=== PATIENT | male | born 1940 | race Caucasian/White ===

== ENCOUNTER 2018-08-27 07:54 | Day surgery (SDC) | payer MEDICARE, OTHER ==
[2018-08-23 12:56] VITALS: BMI 30.8
[~2018-08-27 07:54] MED LIST: LACTATED RINGERS 1,000 ML IV SCH; LIDOCAINE 1% 20 ML VIAL (10MG/ML) FOR IV START INTRADERMA PRN
[2018-08-27 08:13] VITALS: TEMP 97.2
[2018-08-27] MEDS ORDERED: LIDOCAINE 1% INJ 10MG/ML (20 ML MDV) ONE (09:13)
[2018-08-27] MEDS ORDERED: PROPOFOL 10 MG/ML 20 ML VIAL IV ONE (09:13)
[2018-08-27 09:48] VITALS: RESP 16
--- NOTE | 2018-08-27 09:48 | P.PCN ---
Date of Procedure: 08/27/18 Procedure(s) Performed: Procedure: Total colonoscopy. Preoperative diagnosis: History of polyps. Postoperative diagnosis: Mild sigmoid diverticulosis. Preparation: HalfLytely prep. Sedation: Was provided by anesthesia. Brief clinical history: The patient is a 78-year-old male with history of polyps. His last exam was in November 2013. This evaluation as part of his surveillance. He has no abdominal symptoms, bleeding or anemia. Procedure: With the patient on his left lateral decubitus position and after informed consent and adequate sedation, the perianal area was inspected and it did not show any fissures or fistulas. There were no masses felt on digital rectal examination. The Olympus CFH 190L video colonoscope was then inserted in the rectum in the usual fashion and advanced to the cecum. The mucosa appeared healthy. There was a small early diverticular orifice or 2 in the distal sigmoid but I saw no evidence of acute diverticulitis or strictures. No polyps or tumors were seen. I retroflexed the endoscope in the rectum before the endoscope was withdrawn. Low-grade internal hemorrhoids were noted but there was no bleeding. Disposition: The patient tolerated the procedure well. Plan: The patient was reassured. Discussed dietary measures. I did not recommend further screening at his age.
[2018-08-27 10:02] VITALS: BP 145/80; PULSE 48
== END 2018-08-27 10:44 | disposition home or self-care (01) ==
LOC: ORWHC2ENDO 07:54
DX: Z12.11 Encounter for screening for malignant neoplasm of colon (principal); K57.30 Diverticulosis of large intestine without perforation or abscess without bleeding; K64.8 Other hemorrhoids; Z86.010 Personal history of colon polyps; I25.10 Atherosclerotic heart disease of native coronary artery without angina pectoris; K21.9 Gastro-esophageal reflux disease without esophagitis; I10 Essential (primary) hypertension; M10.9 Gout, unspecified; E78.5 Hyperlipidemia, unspecified; I25.2 Old myocardial infarction; Z95.5 Presence of coronary angioplasty implant and graft; Z79.82 Long term (current) use of aspirin; Z79.899 Other long term (current) drug therapy; Z88.5 Allergy status to narcotic agent; Z86.73 Personal history of transient ischemic attack (TIA), and cerebral infarction without residual deficits
CPT/HCPCS: G0105; J2001; J2704

== ENCOUNTER → 2018-11-06 | Outpatient (CLI) | payer OTHER ==
[2018-11-06 11:25] LABS: Basophils % (A) 1 %; Eosinophils # (A) 0.2 k/uL (0-0.7); Eosinophils % (A) 4 %; HCT 39.7 % (39.0-53.0); HGB 13.2 gm/dL (13.0-17.5); Lymphocytes # (A) 1.1 k/uL (1.0-4.8); Lymphocytes % (A) 19 %; MCH 32.8 pg (25.0-35.0); MCHC 33.3 g/dL (31.0-37.0); MCV 98.5 fL (80.0-100.0); Monocytes # (A) 0.4 k/uL (0-1.0); Monocytes % (A) 8 %; Neutrophils # (A) 3.7 k/uL (1.3-7.7); Neutrophils % (A) 66 %; Platelet Count 130 k/uL (150-450); RBC 4.03 m/uL (4.30-5.90); RDW 14.2 % (11.5-15.5); WBC 5.5 k/uL (3.8-10.6)
[2018-11-06 11:26] LABS: Appearance,Urine Clear (Clear); Bilirubin,Urine Negative (Negative); Blood,Urine Negative (Negative); Color,Urine Light Yellow; Glucose,Urine (UA) Negative (Negative); Ketones,Urine Negative (Negative); Leukocyte Esterase,Urine Negative (Negative); Nitrite,Urine Negative (Negative); Protein,Urine Negative (Negative); Specific Gravity,Urine 1.009 (1.001-1.035); Urobilinogen,Urine <2.0 mg/dL (<2.0)
[2018-11-06 16:59] LABS: African American GFR (CKD) 75.2 (60.0-200.0); Anion Gap 6.2 mmol/L (4.00-12.00); Calcium 9.6 mg/dL (8.7-10.3); Carbon Dioxide 30.8 mmol/L (21.6-31.8); Potassium 4.1 mmol/L (3.5-5.5)
== END | disposition home or self-care (01) ==
LOC: LABWHC1 10:17
PROVIDERS: ATTEND Urology
DX: Z01.818 Encounter for other preprocedural examination (principal); Z01.812 Encounter for preprocedural laboratory examination; N52.9 Male erectile dysfunction, unspecified; R35.0 Frequency of micturition; R53.83 Other fatigue
CPT/HCPCS: 36415; 80048; 81003; 85025; 87086; 93005

== ENCOUNTER 2018-11-13 08:29 | Day surgery (SDC) | payer OTHER ==
[2018-11-07 11:25] VITALS: BMI 30.4
--- NOTE | 2018-11-12 12:44 | P.GSHP ---
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 The risks and complications including lack of satisfaction, infection, failure, erosion, malfunction and pa in have been discussed and accepted - Constitutional Constitutional: Denies chills, Denies fever - EENT Eyes: denies blurred vision, denies pain Ears, nose, mouth and throat: Denies headache, Denies sore throat - Cardiovascular Cardiovascular: Denies chest pain, Denies shortness of breath - Respiratory Respiratory: Denies cough, Denies 7 - Gastrointestinal Gastrointestinal: Denies abdominal pain, Denies diarrhea, Denies nausea, Denies vomiting - Genitourinary (Female) Genitourinary: Denies dysuria, Denies hematuria - Genitourinary (Male) Genitourinary: Denies dysuria, Denies hematuria - Musculoskeletal Musculoskeletal: Denies myalgias - Integumentary Integumentary: Denies pruritus, Denies rash - Neurological Neurological: Denies numbness, Denies weakness - Psychiatric Psychiatric: Denies anxiety, Denies depression - Endocrine Endocrine: Denies fatigue, Denies weight change Past Medical History Past Medical History: Coronary Artery Disease (CAD), CVA/TIA, GERD/Reflux, Hyperlipidemia, Hypertension, Myocardial Infarction ([place]), Musculoskeletal Disorder Additional Past Medical History / Comment(s): Gout. Chronic Back Pain, Pinched Sciatic nerves - recent PT, has sl NT lt foot. 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 Last Myocardial Infarction Date:: 2017 History of Any Multi-Drug Resistant Organisms: None Reported Past Surgical History: Appendectomy, Coronary Bypass/CABG, Heart Catheterization, Heart Catheterization With Stent, Orthopedic Surgery Additional Past Surgical History / Comment(s): LEFT ORCHIECTOMY. LEFT ANKLE KEMAR F. COLONOSCOPY, LT ROTATOR CUFF REPAIR, BILAT HAND SX, REPAIR SEVERED LT INDEX AND MIDDLE FINGER REPAIR, CABG 2v 09/2015. Past Anesthesia/Blood Transfusion Reactions: Previous Problems w/ Anesthesia Additional Past Anesthesia/Blood Transfusion Reaction / Comment(s): Diff awakening with Sodium Pentothal. Date of Last Stent Placement:: 10/15/2009 Smoking Status: Former smoker - Past Family History Mother Family Medical History: Cancer Medications and Allergies Home Medications Medication Instructions Recorded Confirmed Type Aspirin 81 mg PO DAILY 11/21/13 11/07/18 History Tamsulosin [Flomax] 0.4 mg PO HS 11/21/13 11/07/18 History amLODIPine [Norvasc] 10 mg PO QAM 11/21/13 11/07/18 History Acetaminophen [Tylenol] 650 mg PO Q6H PRN 08/23/18 11/07/18 History Ascorbic Acid [Vitamin C] 500 mg PO DAILY 08/23/18 11/07/18 History Atorvastatin [Lipitor] 80 mg PO HS 08/23/18 11/07/18 History Cholecalciferol [Vitamin D3 (25 1,000 unit PO DAILY 08/23/18 11/07/18 History Mcg = 1000 Iu)] Cyanocobalamin (Vitamin B-12) 1,000 mcg PO DAILY 08/23/18 11/07/18 History [Vitamin B-12] Ferrous Sulfate [Feosol] 325 mg PO DAILY 08/23/18 11/07/18 History Lisinopril-Hctz 20-12.5 mg 1 each PO DAILY 08/23/18 11/07/18 History [Zestoretic 20-12.5] Metoprolol Tartrate [Lopressor] 50 mg PO DAILY 08/23/18 11/07/18 History Omeprazole [PriLOSEC] 20 mg PO AC-BID 08/23/18 11/07/18 History Allergies Allergy/AdvReac Type Severity Reaction Status Date / Time codeine Allergy Nausea & Verified 11/07/18 10:55 Vomiting, Rash Sodium Pentothal AdvReac Slow to Uncoded 11/07/18 11:21 Awaken Surgical - Exam - General well developed, well nourished, no distress - Eyes PERRL - ENT no hearing loss - Neck no masses, trachea midline - Respiratory normal expansion, normal respiratory effort - Cardiovascular Rhythm: regular - Abdomen Abdomen: soft, non tender - Genitourinary normal penis with no external lesions, testicles present - Integumentary no rash, no growths - Neurologic normal coordination - Musculoskeletal normal gait, normal posture - Psychiatric oriented to time, oriented to person, oriented to place, speech is normal, memory intact Assessment and Plan Assessment: 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
[~2018-11-13 08:29] MED LIST changes: +AMPICILLIN 1,000 MG in SODIUM CHLORIDE 0.9% 50 ML IVPB ONE; +DEXAMETHASONE SOD PHOSPHATE 10 MG/ML 1 ML VIAL IV ONE; +HYDROmorphone 0.5 MG/0.5 ML SYRINGE IVP PRN; -LACTATED RINGERS 1,000 ML IV SCH; +MIDAZOLAM 2 MG/2 ML VIAL IV PRN; +ONDANSETRON 4 MG/2 ML VIAL IVP ONE; +SCOPOLAMINE 1.5MG/72HR PATCH TRANSDERM ONE
[2018-11-13] MEDS ORDERED: TAMSULOSIN 0.4 MG CAP.ER.24H PO STA (09:04)
[2018-11-13] MEDS: LACTATED RINGERS 1,000 ML IV SCH ×2 (09:14→09:30)
[2018-11-13] MEDS: GENTAMICIN 120 MG in SODIUM CHLORIDE 0.9% 100 ML IVPB ONE ×2 (09:26→09:30)
[2018-11-13] MEDS ORDERED: fentaNYL (PF) 50 MCG/ML 2 ML AMP ONE (09:30)
[2018-11-13] MEDS ORDERED: PROPOFOL 10 MG/ML 20 ML VIAL IV ONE (09:30)
[2018-11-13] MEDS ORDERED: MIDAZOLAM 2 MG/2 ML VIAL ONE (09:30)
[2018-11-13] MEDS ORDERED: LIDOCAINE 1% INJ 10MG/ML (20 ML MDV) ONE (09:30)
[2018-11-13] MEDS ORDERED: SUCCINYLCHOLINE CHLORIDE 100 MG/5 ML SYR IV ONE (09:30)
[2018-11-13 11:07] VITALS: RESP 16; TEMP 97.4
--- NOTE | 2018-11-13 11:12 | P.OP ---
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 He comes for an inflatable penile prosthesis. Risks complications including permanent impotence pain incontinence lack of satisfaction erosion among others. Description of Procedure: Patient is brought to the operating suite and given a successful general endotracheal anesthesia. He is prepped and draped sterilely. A midline infrapubic incision is made. We dissect down to the pubis and March above the pubis and open the rectus fascia and develop the prevesical space for the reservoir. We marched down to the penis and expose each corpora cavernosa. 3-0 PDS stitches are placed in each corpora cavernosa. Corporotomies right and left are made. The corpora were dilated proximally and distally with Metzenbaum scissors and then Hegar dilators 9-13. We then measured the length of the corpora at 10 cm proximally bilaterally and 9 cm distally bilaterally. I'll use an 18 cm implant with a 1 cm rear-tip group controller. I then used the Haseeb introducer and a Min needle and pass each implant through the distal corpora with the needle going through the head of the penis. Each cylinder is then placed in the corpora and inflated without buckling. The corporotomies are closed with 3-0 PDS bilaterally. I then created a space for the pump in the scrotum. I then connected the tubing from the reservoir to the pump with straight connects. I inflate and deflate the implant nicely without significant buckling or ST deformity. 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 I closed the wound with 3-0 chromic and then 4-0 Vicryl. The wound was irrigated with antibiotic irrigation. A Shook catheters passed into the urethra and drained the bladder easily without blood. Blood loss is 50 mL. He tolerated procedure well and will be discharged home upon recovery later today.
[2018-11-13 12:51] VITALS: BP 135/62; PULSE 71
[2018-11-13] MEDS ORDERED: HYDROcodone/APAP 5-325MG 1 EACH TAB PO ONE (12:59)
== END 2018-11-13 13:51 | disposition home or self-care (01) ==
LOC: OR 08:29
PROVIDERS: ATTEND Urology
DX: N52.01 Erectile dysfunction due to arterial insufficiency (principal); I10 Essential (primary) hypertension; E78.00 Pure hypercholesterolemia, unspecified; I25.10 Atherosclerotic heart disease of native coronary artery without angina pectoris; Z86.73 Personal history of transient ischemic attack (TIA), and cerebral infarction without residual deficits; K21.9 Gastro-esophageal reflux disease without esophagitis; I25.2 Old myocardial infarction; Z95.1 Presence of aortocoronary bypass graft; Z95.5 Presence of coronary angioplasty implant and graft; Z87.891 Personal history of nicotine dependence; Z79.82 Long term (current) use of aspirin; Z79.899 Other long term (current) drug therapy; Z88.5 Allergy status to narcotic agent; E78.5 Hyperlipidemia, unspecified; N40.0 Benign prostatic hyperplasia without lower urinary tract symptoms
CPT/HCPCS: 54405; C1813; J2250; J1100; J2405; J2001; J3010; J1580; J0290; J0330; J2704; J1170

== ENCOUNTER → 2022-10-19 | Outpatient (CLI) | payer OTHER ==
--- NOTE | 2022-10-20 10:19 | MR ---
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 COMPARISON: None TECHNIQUE: Multiplanar multi-sequence imaging was performed without and with IV contrast/Gadavist . The patient was given 8.5 ccs of Gadavist intravenously and dynamic imaging was performed. FINDINGS: LOWER CHEST: No gross irregularity. Assess stability artifact from median sternotomy wires. ABDOMEN Liver: No focal lesion.. Mild decreased signal on in phase imaging. Quantification of 2.08 mg/g iron consistent with light iron overload. Gallbladder and Bile ducts: Unremarkable. Pancreas: Unremarkable. Spleen: Diffusely T2 hypointense. No focal lesion. Adrenal glands: Unremarkable. Kidneys: No hydronephrosis. Right renal simple cysts with largest measuring 2.2 cm. Stomach and Bowel: Unremarkable as visualized. Peritoneum: No evidence of pneumoperitoneum, free fluid, or adenopathy. Vasculature: Unremarkable. No aortic aneurysm. Abdominal wall: Unremarkable. Musculoskeletal: The osseous structures appear intact. IMPRESSION: 1. Mild hepatic overload of 2.08 mg/ of iron consistent with white iron overload. Consistent with rep orted hemachromatosis. No focal lesion. 2. Simple right renal cyst.
== END | disposition home or self-care (01) ==
LOC: RADMRIMAIN 12:09
PROVIDERS: ATTEND Internal Medicine
DX: E83.119 Hemochromatosis, unspecified (principal); N28.1 Cyst of kidney, acquired
CPT/HCPCS: 74183; A9585

== ENCOUNTER 2023-04-18 06:06 | Day surgery (SDC) | payer OTHER ==
[2023-04-18 07:03] LABS: Glucose,Whole Blood 154 mg/dL (70-110)
[2023-04-18] MEDS: LACTATED RINGERS 1,000 ML IV SCH (07:03)
[2023-04-18] MEDS ORDERED: PROPOFOL 10 MG/ML 20 ML VIAL IV ONE (07:04)
[2023-04-18] MEDS ORDERED: KETOROLAC 15 MG/ML 1 ML VIAL ONE (07:04)
[2023-04-18 07:28] LABS: Glucose,Whole Blood 153 mg/dL (70-110)
[2023-04-18 07:29] VITALS: RESP 16; TEMP 98
[2023-04-18 07:30] VITALS: PULSE 67
[2023-04-18 07:51] LABS: Basophils % (A) 0 %; Eosinophils % (A) 0 %; HCT 35.7 % (39.0-53.0); HGB 11.8 gm/dL (13.0-17.5); Lymphocytes # (A) 0.5 k/uL (1.0-4.8); Lymphocytes % (A) 7 %; MCHC 33.2 g/dL (31.0-37.0); MCV 99.5 fL (80.0-100.0); Macrocytosis Slight; Mean Platelet Volume 10.3; Monocytes # (A) 0.4 k/uL (0-1.0); Monocytes % (A) 6 %; Neutrophils % (A) 85 %; Platelet Count 104 k/uL (150-450); RBC 3.58 m/uL (4.30-5.90); Reticulocyte % 1.1 % (0.5-2.0); WBC 7.1 k/uL (3.8-10.6)
[2023-04-18 08:00] VITALS: BP 147/64
[2023-04-18 08:07] LABS: Rouleaux Present
--- NOTE | 2023-04-18 08:33 | OP ---
OPERATIVE REPORT DATE OF SERVICE : 04/18/2023 PREOPERATIVE DIAGNOSIS: Monoclonal gammopathy. POSTOPERATIVE DIAGNOSIS: Monoclonal gammopathy, rule out multiple myeloma. PROCEDURE PERFORMED: Bone marrow aspirate and biopsy site right iliac crest. ANESTHESIA: Local with IV systemic sedation. DETAILS: Utilizing sterile technique, the skin overlying the right iliac crest was prepared with Betadine and alcohol. After adequate sterile draping, local anesthesia with 1% lidocaine and systemic sedation provided by [employer]. Size 11 4 inch Jamshidi needle was utilized in the periosteum with ease. A total of 15 mL of aspirate as well as a crest 4 mm bone core biopsy was obtained. The patient tolerated the procedure extremely well. There was no immediate procedure related complication. TOTAL BLOOD LOSS: Less than 1 mL. RESULTS: Pending. MMODL / IJN: [id number] /
== END 2023-04-18 07:56 | disposition home or self-care (01) ==
LOC: OR 06:06
PROVIDERS: ATTEND Internal Medicine Hematology & Oncology
DX: D47.2 Monoclonal gammopathy (principal); I10 Essential (primary) hypertension; I25.2 Old myocardial infarction; I25.10 Atherosclerotic heart disease of native coronary artery without angina pectoris; E78.5 Hyperlipidemia, unspecified; C90.00 Multiple myeloma not having achieved remission; M19.90 Unspecified osteoarthritis, unspecified site; K21.9 Gastro-esophageal reflux disease without esophagitis; Z79.84 Long term (current) use of oral hypoglycemic drugs; Z79.82 Long term (current) use of aspirin; Z87.891 Personal history of nicotine dependence; Z88.5 Allergy status to narcotic agent; Z88.6 Allergy status to analgesic agent; Z95.5 Presence of coronary angioplasty implant and graft; Z79.899 Other long term (current) drug therapy; Z79.83 Long term (current) use of bisphosphonates; Z86.73 Personal history of transient ischemic attack (TIA), and cerebral infarction without residual deficits; Z80.8 Family history of malignant neoplasm of other organs or systems
CPT/HCPCS: 85025; 85045; 38222; J1885; J2704